=== PATIENT | female | born 1970 | race Caucasian/White ===

== ENCOUNTER 2016-12-01 16:12 | Emergency (ER) | payer BC ==
[2016-12-01 16:26] VITALS: O2SAT 96
[2016-12-01] MEDS ORDERED: OXYCODONE/APAP 5/325 TAB PO ONE (17:16)
--- NOTE | 2016-12-01 17:16 | EDPHY ---
H & P Stated Complaint: Left wrist pain from snowboarding fall. Time Seen by Provider: 12/01/16 16:15 HPI/ROS: CHIEF COMPLAINT: Left wrist pain and deformity after fall HISTORY OF PRESENT ILLNESS: The patient presents to the ED with complaints of deformity pain and swelling to her left wrist after she fell while snowboarding. She reports moderate to severe pain and swelling. She denies focal numbness or weakness. The patient denies pain in her elbow, shoulder, back or neck. The patient did not strike her head or lose consciousness. She has no complaints of shortness of breath or abdominal pain. The patient is not on any anticoagulants. REVIEW OF SYSTEMS: A comprehensive 10 point review of systems is otherwise negative aside from elements mentioned in the history of present illness. Source: Patient Exam Limitations: No limitations - Personal History LMP (Females 10-55): 1-7 Days Ago Current Tetanus/Diphtheria Vaccine: Yes Current Tetanus Diphtheria and Acellular Pertussis (TDAP): Yes - Medical/Surgical History Hx Asthma: No Hx Chronic Respiratory Disease: No Hx Diabetes: No Hx Cardiac Disease: No Hx Renal Disease: No Hx Cirrhosis: No Hx Alcoholism: No Hx HIV/AIDS: No Hx Splenectomy or Spleen Trauma: No Other PMH: Denies - Family History Significant Family History: No pertinent family hx - Social History Smoking Status: Never smoked - Physical Exam Exam: General Appearance: Alert, no distress Neck: Nontender, trachea midline Respiratory: No chest wall tender, subcutaneous air, lungs clear bilaterally Cardiovascular: Regular rate and rhythm Abdomen: Abdomen is soft and nontender, pelvis stable Skin: No lacerations, No abrasion Back: No midline T/L/S pain Extremities: Tenderness to palpation, deformity and swelling noted to the left distal radius Neurological: GCS 15, 5/5 strength noted bilateral upper extremities, sensation intact to light touch throughout the right upper extremity Constitutional: Initial Vital Signs Temperature (C) 37.2 C 12/01/16 16:21 Heart Rate 92 12/01/16 16:21 Respiratory Rate 17 12/01/16 16:21 Blood Pressure 122/88 H 12/01/16 16:21 O2 Sat (%) 96 12/01/16 16:21 O2 Delivery Mode Room Air Allergies/Adverse Reactions: No Known Allergies Allergy (Unverified 12/01/16 16:20) Home Medications: Medication Instructions Recorded oxyCODONE/APAP 5/325 [Percocet 1 - 2 tab PO Q6-8PRN PRN #20 tab 12/01/16 5/325 (RX)] Medical Decision Making - Diagnostics Imagin. History: Pain post trauma fall, snowboarding injury Comparison: None Findings: There is a comminuted Colles' fracture of the distal radius with dorsal angulation of the distal radius by approximately 40 degrees and dorsal displacement of the radius by approximately 4 mm. The carpal bones look normal including the navicular. Impression: Worse laterally angulated, dorsally displaced intra-articular Colles ' fracture. 2. Post reduction left wrist x-ray: Images reviewed by myself, markedly improved anatomic alignment of the distal radius fracture. Procedures: GENERAL FRACTURE REDUCTION: Procedure: Reduction of angulated displaced left distal radius fracture Time-out completed immediately before the procedure. Neurovascular exam intact pre-procedure. Given hematoma block for pain using 5 cc of 1% bupivacaine. The left comminuted, displaced, dorsally angulated distal radius fracture was reduced using traction and dorsal pressure. Reassessed post-procedure. Neurovascular status intact-Normal Motor and sensory exam. Exam indicated reduction. Confirmed reduction on X-ray. Splint applied by myself/tech. The procedure was performed by myself, Dr. Delmar Hayes ED Course/Re-evaluation: The patient presents to the ED with a Colles type fracture involving her left wrist. The patient did undergo a hematoma block performed by myself without complication. Differential Diagnosis: Differential diagnosis considered includes fracture, sprain, dislocation - Data Points Medications Given: Discontinued Medications Oxycodone/Acetaminophen (Percocet 5/325) 2 tab PO EDNOW ONE Stop: 12/01/16 17:17 Last Admin: 12/01/16 17:22 Dose: 2 tab Departure - Departure Disposition: Home, Routine, Self-Care Clinical Impression: Distal radius fracture, left Qualifiers: Encounter type: initial encounter Fracture type: closed Fracture morphology: other intra-articular Qualified Code(s): S52.572A - Other intraarticular fracture of lower end of left radius, initial encounter for closed fracture Condition: Good Instructions: Wrist Fracture in Adults (ED) Additional Instructions: 1. Please schedule a follow-up appointment with orthopedic surgeon for a recheck this week. You have been referred to our on-call hand surgeon Dr. Feliberto Bello who would be happy to see you in follow-up. 2. Percocet as needed for pain. 3. Ice several times a day over the next several days. 4. Please wear splint until seen in follow-up by Orthopedic surgery. Because your fracture does go into the joint, further repair may be required. Referrals: Feliberto Bello MD [Medical Doctor] - As per Instructions Prescriptions: oxyCODONE/APAP 5/325 [Percocet 5/325 (RX)] 1 - 2 tab PO Q6-8PRN PRN #20 tab PRN Reason: for pain
[2016-12-01 18:11] VITALS: BP 124/75; PULSE 76; RESP 16; TEMP 97.9
== END 2016-12-01 18:16 | disposition home or self-care (01) ==
DX: S52.572A Other intraarticular fracture of lower end of left radius, initial encounter for closed fracture (principal); V00.311A Fall from snowboard, initial encounter; Y99.8 Other external cause status; Y93.23 Activity, snow (alpine) (downhill) skiing, snowboarding, sledding, tobogganing and snow tubing